=== PATIENT | male | born 1965 | race Caucasian/White ===

== ENCOUNTER → 2018-12-23 | Outpatient (CLI) | payer OTHER ==
[~2018-12-23] MED LIST: ASPI81TA85 PO; ATOR1TAB19 PO; MULTTAB PO
--- NOTE | 2018-12-24 02:00 | REP ---
Clinical: Right wrist Pain with recent trauma. Technique: AP, lateral, bilateral oblique views. Findings: There is no evidence for acute fracture or dislocation. No subcutaneous emphysema or radiodense foreign body. Mild degenerative changes include increased sclerosis along the radial surface with decreased radiocarpal joint space. Impression: No acute fracture or dislocation Electronically Signed by Michael Rich MD 12/24/2018 01:52 A
== END ==
LOC: M WUC 09:43
PROVIDERS: ATTEND Internal Medicine
DX: M25.531 Pain in right wrist (principal)

== ENCOUNTER → 2023-04-21 | Outpatient (REF) | payer OTHER ==
[~2023-04-21] MED LIST changes: -ASPI81TA85 PO; +ASPI81TA86 PO
[2023-04-21 19:59] LABS: ALKALINE PHOSPHATASE 56 U/L (46-116); ALT/SGPT 28 U/L (7.0-40); AST/SGOT 21 U/L (<34); BILIRUBIN,TOTAL 0.5 MG/DL (0.3-1.2); BLOOD UREA NITROGEN 23 MG/DL (9-23); CALCIUM LEVEL 9.3 MG/DL (8.5-10.1); CARBON DIOXIDE LEVEL 26 MMOL/L (20-31); CHLORIDE LEVEL 106 MMOL/L (98-107); CHOLESTEROL LEVEL 130 MG/DL (<200); CHOLESTEROL RISK RATIO 2.58 (<5); CREATININE FOR GFR 1.17 MG/DL (0.70-1.30); GLOMERULAR FILTRATION RATE > 60.0 (>56); GLUCOSE, FASTING 84 MG/DL (60-100); HDL CHOLESTEROL 50.3 MG/DL (>40); LDL CHOLESTEROL 43.3 MG/DL (<100); NON-HDL-C 79.7 MG/DL; SODIUM LEVEL 141 MMOL/L (136-145); TOTAL PROTEIN 6.9 G/DL (5.7-8.2); TRIGLYCERIDES LEVEL 182 MG/DL (<150)
== END ==
LOC: M LAB REF 19:26
PROVIDERS: ATTEND Internal Medicine
DX: E78.2 Mixed hyperlipidemia (principal)

== ENCOUNTER 2024-01-15 06:59 | Day surgery (SDC) | payer OTHER ==
[~2024-01-15] VITALS: Ht 177.8 cm; Wt 106.7 kg
[2024-01-15] MEDS: NS 1,000 ML IV ONE (06:00)
[~2024-01-15 06:59] MED LIST changes: +ASPI-615 PO; +OMEP-173 PO; +SILD100T PO; +THERTAB52 PO
[2024-01-15] MEDS ORDERED: propofoL 200 MG/20 ML VIAL As Ordered ONE (07:11)
[2024-01-15] MEDS ORDERED: LIDOCAINE 2% 100MG/5ML SDV (FOR ANES.) As Ordered ONE (07:11)
[2024-01-15 08:56] VITALS: BP 118/67; TEMP 97.5; O2SAT 95
== END 2024-01-15 08:15 | disposition home or self-care (01) ==
LOC: M OPP 06:59
PROVIDERS: ATTEND Surgery
DX: Z12.11 Encounter for screening for malignant neoplasm of colon (principal); K57.30 Diverticulosis of large intestine without perforation or abscess without bleeding; Z79.02 Long term (current) use of antithrombotics/antiplatelets; Z79.82 Long term (current) use of aspirin; Z79.899 Other long term (current) drug therapy